=== PATIENT | female | born 1975 | race Caucasian/White ===

== ENCOUNTER 2019-03-09 15:36 | Emergency (ER) | payer MEDICAID ==
[~2019-03-09] VITALS: Ht 167.6 cm; Wt 95.3 kg
[2019-03-09 16:12] VITALS: BP_SYST 157
--- NOTE | 2019-03-09 16:17 | NUR ---
Patient triaged and placed in waiting room. VSS and patient appears in no acute distress at this time. Accompanied by [email or web address], awaiting available bed, and MD notified of need for MSE.
--- NOTE | 2019-03-09 17:41 | NUR ---
Patient to ER bed 7 for evaluation.
--- NOTE | 2019-03-09 17:45 | NUR ---
Patient to ER via triage for evaluation of generalized rash and hives after trying new sunblock. Patient reports taking OTC Benadryl with mild relief, patient is awake, alert and oriented in no acute distress, vital signs stable, respirations even and unlabored, skin warm and dry to touch. Patient able to ambulate without difficulty with slow, steady gait with friend at her side. Awaiting evaluation by ER MD, will contnue to observe and assess.
--- NOTE | 2019-03-09 17:55 | NUR ---
ER at bedside examining patient.
[2019-03-09 18:15] VITALS: BP_SYST 140
--- NOTE | 2019-03-09 18:15 | NUR ---
Patient given written and verbal discharge instructions and verbalizes understanding. ER MD discussed with patient the results and treatment provided. Patient in stable condition. ID arm band removed. Rx of Medrol Dosepak given. Patient educated on pain management and to follow up with PMD. Pain Scale 0. Opportunity for questions provided and answered. Medication side effect fact sheet provided. Patient left ER in no acute distress, able to ambulate without difficulty with slow, steady gait with friend at her side.
== END 2019-03-09 18:15 | disposition home or self-care (01) ==
LOC: SED 15:36
DX: L25.9 Unspecified contact dermatitis, unspecified cause (principal); R03.0 Elevated blood-pressure reading, without diagnosis of hypertension; Z91.013 Allergy to seafood
CPT/HCPCS: 99283